=== PATIENT | male | born 2000 ===

== ENCOUNTER 2023-08-27 14:50 | Emergency (ER) | payer BC | END 2023-08-27 17:18 | disposition home or self-care (01) | LOC: MW.ED 14:50 | DX: S09.90XA Unspecified injury of head, initial encounter (principal); W22.8XXA Striking against or struck by other objects, initial encounter | CPT/HCPCS: 99282; 99283 ==

== ENCOUNTER 2024-02-21 12:05 | Emergency (ER) | payer BC ==
[2024-02-21 12:26] LABS: BASOPHILS ABSOLUTE AUTO 0.05 K/uL (0.00-0.20); BASOPHILS PERCENT AUTO 0.9 % (0.0-1.0); EOSINOPHILS ABSOLUTE AUTO 0.06 K/uL (0.00-0.45); HEMATOCRIT 41.2 % (42.0-52.0); HEMOGLOBIN 14.8 g/dL (14.0-18.0); IMMATURE GRAN ABSOLUTE AUTO 0.03 K/uL (0.00-0.05); IMMATURE GRAN PERCENT AUTO 0.5 % (0.0-0.4); LYMPHOCYTES PERCENT AUTO 32.7 % (24.0-44.0); MEAN CORPUSCULAR HEMOGLOBIN 30.3 pg (28.0-32.0); MEAN CORPUSCULAR HGB CONC 35.9 g/dL (32.0-36.0); MEAN CORPUSCULAR VOLUME 84.4 fL (83.0-99.0); MEAN PLATELET VOLUME 9.9 fL (9.4-12.4); MONOCYTES ABSOLUTE AUTO 0.45 K/uL (0.00-0.80); MONOCYTES PERCENT AUTO 7.7 % (0.0-8.0); NEUTROPHILS ABSOLUTE AUTO 3.32 K/uL (1.80-7.70); NEUTROPHILS PERCENT AUTO 57.2 % (41.0-71.0); PLATELET COUNT,PLT 236 K/uL (150-400); RED BLOOD CELL COUNT 4.88 M/uL (4.52-5.90); WHITE BLOOD CELL COUNT,WBC 5.81 K/uL (3.9-11.3)
[2024-02-21 12:41] LABS: INR 1.05 (0.86-1.11)
[2024-02-21 12:56] LABS: A/G RATIO 1.7 (0.9-1.6); ALANINE AMINOTRANSFERASE,ALT 38 IU/L (14-63); ALBUMIN 4.3 g/dL (3.4-5.0); ALKALINE PHOSPHATASE 92 U/L (46-116); ASPARTATE AMNIOTRANSFERASE,AST 18 IU/L (15-37); BILIRUBIN TOTAL 1.3 mg/dL (0.2-1.0); BLOOD UREA NITROGEN,BUN 11 mg/dL (7.0-18.0); CALCIUM 9.1 mg/dL (8.5-10.1); CARBON DIOXIDE,CO2 25.7 mmol/L (21.0-32.0); CHLORIDE,CL 102 mmol/L (98-107); EST CRCL DRUG DOSING (CG) 111.15 mL/min; GLUCOSE RANDOM 110 mg/dL (74-106); LIPASE 27 U/L (16-77); POTASSIUM,K 3.9 mmol/L (3.5-5.1); PROTEIN TOTAL,TP 6.8 g/dL (6.4-8.2); SODIUM,NA 138 mmol/L (136-148)
[2024-02-21 13:01] LABS: ESTIMATED GFR 108 mL/min (>60)
== END 2024-02-21 13:23 | disposition home or self-care (01) ==
LOC: MW.ED 12:05
DX: R07.9 Chest pain, unspecified (principal); Z75.8 Other problems related to medical facilities and other health care
CPT/HCPCS: 36415; 71046; 71046-26; 80053; 83690; 84484; 85025; 85610; 85730; 93005; 93010; 99285

== ENCOUNTER 2024-05-15 19:37 | Emergency (ER) | payer BC | END 2024-05-15 20:45 | disposition left against medical advice (07) | LOC: MW.ED 19:37 | DX: Z53.21 Procedure and treatment not carried out due to patient leaving prior to being seen by health care provider (principal) | CPT/HCPCS: 71045; 71045-26; 93005 ==